=== PATIENT | female | born 1995 | race African-American/Black ===

== ENCOUNTER 2019-04-28 09:53 | Emergency (ER) | payer OTHER ==
[~2019-04-28] VITALS: Ht 167.6 cm; Wt 69.4 kg
[~2019-04-28 09:53] MED LIST: AUGMENTIN 875875 MG PO; IBUPROFEN 800800 M1 PO; NOHOMEMEDICATIONS; VITAFOL-OB+DHA1 EACH PO
[2019-04-28] MEDS ORDERED: NORFLEX100 MG PO (11:14)
[2019-04-28 11:25] VITALS: BP 114/78
== END 2019-04-28 11:26 | disposition home or self-care (01) ==
LOC: ER 09:53
DX: S39.012A Strain of muscle, fascia and tendon of lower back, initial encounter (principal); V89.2XXA Person injured in unspecified motor-vehicle accident, traffic, initial encounter; Y93.89 Activity, other specified; Y92.488 Other paved roadways as the place of occurrence of the external cause; Y99.8 Other external cause status

== ENCOUNTER 2019-06-22 18:24 | Emergency (ER) | payer OTHER ==
[~2019-06-22] VITALS: Ht 167.6 cm; Wt 66.2 kg
[~2019-06-22 18:24] MED LIST changes: +NORFLEX100 MG PO
[2019-06-22 18:42] LABS: URINE BILIRUBIN NEGATIVE (Negative); URINE BLOOD NEGATIVE (Negative); URINE CLARITY SL CLOUDY; URINE COLOR YELLOW; URINE GLUCOSE-RANDOM* NEGATIVE (Negative); URINE KETONES NEGATIVE (Negative); URINE NITRITE-REFLEX NEGATIVE (Negative); URINE PROTEIN (DIPSTICK) TRACE (Negative)
[2019-06-22 18:49] LABS: URINE LEUKOCYTES-REFLEX 3+ (Negative)
[2019-06-22 18:50] LABS: SQUAMOUS >10 Many /LPF (0-3)
[2019-06-22 18:51] LABS: MUCUS >6 Heavy strn/LPF (None Seen); URINE WBC-REFLEX >25 Many /HPF (0-5)
[2019-06-22 18:52] LABS: CASTS None Seen /LPF (None Seen); URINE RBC 0-2 Rare /HPF (0-2)
[2019-06-22 18:53] LABS: AMORPHOUS URATES Few /LPF (None Seen)
[2019-06-22 20:40] VITALS: BP 114/77
== END 2019-06-22 20:36 | disposition home or self-care (01) ==
LOC: ER 18:24
PROVIDERS: Physician Assistant
DX: B37.3 Candidiasis of vulva and vagina (principal); R10.30 Lower abdominal pain, unspecified

== ENCOUNTER 2020-09-22 14:00 | Emergency (ER) | payer OTHER ==
[~2020-09-22] VITALS: Ht 167.6 cm; Wt 64.4 kg
[2020-09-22 14:26] LABS: URINE BILIRUBIN NEGATIVE (Negative); URINE BLOOD NEGATIVE (Negative); URINE CLARITY CLEAR; URINE COLOR YELLOW; URINE GLUCOSE-RANDOM* NEGATIVE (Negative); URINE KETONES NEGATIVE (Negative); URINE NITRITE-REFLEX NEGATIVE (Negative); URINE PROTEIN (DIPSTICK) NEGATIVE (Negative); URINE UROBILINOGEN 0.2 E.U./dl (0.2-1.0)
[2020-09-22 14:27] LABS: URINE LEUKOCYTES-REFLEX 1+ (Negative)
[2020-09-22 14:29] LABS: BACTERIA-REFLEX 1-9 Few /HPF (None Seen); SQUAMOUS 4-10 Moderate /LPF (0-3); URINE RBC None Seen /HPF (0-2); URINE WBC-REFLEX 0-5 Rare /HPF (0-5)
[2020-09-22 14:30] LABS: CRYSTALS None Seen /LPF (None Seen); FINE GRANULAR CASTS 0-3 Few /LPF (None Seen); HYALINE CASTS 0-3 Few /LPF (None Seen); MUCUS >6 Heavy strn/LPF (None Seen)
[2020-09-22] MEDS ORDERED: DIFLUCAN200 MG PO (15:19)
[2020-09-22] MEDS ORDERED: FLAGYL500 M1 PO (15:19)
[2020-09-22 15:53] VITALS: BP 109/72
[2020-09-23] MEDS ORDERED: DOXYCYCLINE 10100 MG PO (04:57)
== END 2020-09-22 15:57 | disposition home or self-care (01) ==
LOC: ER 14:00
PROVIDERS: Physician Assistant
DX: N76.0 Acute vaginitis (principal); B37.3 Candidiasis of vulva and vagina